=== PATIENT | female | born 1995 ===

== ENCOUNTER → 2019-05-19 | Outpatient (CLI) | payer BC, OTHER ==
[~2019-05-19] MED LIST: HYDR1TAB94 PO; IBUP400 PO; KETO10 PO; OXYACE5T PO
== END | disposition home or self-care (01) ==
LOC: LAB 19:21 → LAB SHORT 19:21
PROVIDERS: Nurse Practitioner
DX: Z01.419 Encounter for gynecological examination (general) (routine) without abnormal findings (principal)
CPT/HCPCS: G0145

== ENCOUNTER → 2019-10-15 | Outpatient (CLI) | payer BC | END | disposition home or self-care (01) | LOC: LAB SHORT 13:05 → PLD 13:05 | DX: D22.5 Melanocytic nevi of trunk (principal) | CPT/HCPCS: 88305 ==

== ENCOUNTER → 2021-11-24 | Outpatient (CLI) | payer BC ==
[2021-11-24 17:54] LABS: BASOPHILS ABSOLUTE AUTO 0.02 K/mm3 (0.00-0.23); BASOPHILS PERCENT AUTO 0 % (0-2); EOSINOPHILS ABSOLUTE AUTO 0.09 K/mm3 (0.00-0.68); EOSINOPHILS PERCENT AUTO 1 % (0-6); Hematocrit 39.8 % (33.0-51.0); IMMATURE GRAN ABSOLUTE AUTO 0.02 K/mm3 (0.00-0.10); IMMATURE GRAN PERCENT AUTO 0 % (0-1); LYMPHOCYTES ABSOLUTE AUTO 1.54 K/mm3 (0.84-5.20); LYMPHOCYTES PERCENT AUTO 17 % (21-46); MONOCYTES PERCENT AUTO 5 % (4-13); Mean Corpuscular HGB 30.8 pg (26.0-34.0); Mean Corpuscular HGB Conc 32.7 g/dL (31.5-36.5); Mean Corpuscular Volume 94 fL (80-100); Mean Platelet Volume 11.5 fL (9.1-12.4); NEUTROPHILS PERCENT AUTO 77 % (41-73); Platelet Count 254 K/mm3 (150-400); RDW Coefficient Variation 11.9 % (11.7-14.2); Red Blood Cell Count 4.22 M/mm3 (3.80-5.20); White Blood Cell Count 9.27 K/mm3 (4.00-11.30)
[2021-11-24 18:19] LABS: Thyroid Stimulating Hormone 0.812 uIU/mL (0.360-4.800)
== END | disposition home or self-care (01) ==
LOC: LAB SHORT 14:52
PROVIDERS: Advanced Practice Midwife
DX: O09.91 Supervision of high risk pregnancy, unspecified, first trimester (principal); O99.281 Endocrine, nutritional and metabolic diseases complicating pregnancy, first trimester; E03.9 Hypothyroidism, unspecified
CPT/HCPCS: 82950; 84443; 85025

== ENCOUNTER 2022-02-11 05:09 | Inpatient (IN) | payer BC ==
[~2022-02-11] VITALS: Ht 160 cm; Wt 79.5 kg
[2022-02-11] MEDS ORDERED: LEVSOD75 (05:23)
[2022-02-11] MEDS ORDERED: PRENATAL TABLE1 EAC2 (05:23)
[2022-02-11 06:11] LABS: BASOPHILS ABSOLUTE AUTO 0.02 K/mm3 (0.00-0.23); BASOPHILS PERCENT AUTO 0 % (0-2); EOSINOPHILS ABSOLUTE AUTO 0.05 K/mm3 (0.00-0.68); EOSINOPHILS PERCENT AUTO 1 % (0-6); Hematocrit 42.3 % (33.0-51.0); Hemoglobin 14.6 g/dL (11.5-16.0); IMMATURE GRAN ABSOLUTE AUTO 0.02 K/mm3 (0.00-0.10); IMMATURE GRAN PERCENT AUTO 0 % (0-1); LYMPHOCYTES ABSOLUTE AUTO 2.03 K/mm3 (0.84-5.20); LYMPHOCYTES PERCENT AUTO 20 % (21-46); MONOCYTES ABSOLUTE AUTO 0.54 K/mm3 (0.16-1.47); MONOCYTES PERCENT AUTO 5 % (4-13); Mean Corpuscular HGB Conc 34.5 g/dL (31.5-36.5); Mean Corpuscular Volume 87 fL (80-100); Mean Platelet Volume 11.5 fL (9.1-12.4); NEUTROPHILS ABSOLUTE AUTO 7.43 K/mm3 (1.96-9.15); NEUTROPHILS PERCENT AUTO 74 % (41-73); Platelet Count 251 K/mm3 (150-400); RDW Coefficient Variation 11.9 % (11.7-14.2); RDW Standard Deviation 38.5 fL (35.1-46.3); Red Blood Cell Count 4.86 M/mm3 (3.80-5.20); White Blood Cell Count 10.09 K/mm3 (4.00-11.30)
== END 2022-02-12 10:55 | disposition home or self-care (01) | DRG 768 ==
LOC: OBS 05:09 → BC 05:10 → OBS 05:26 → BC 05:27
PROVIDERS: ADMIT Family Medicine
PROC: 10E0XZZ Delivery of Products of Conception, External Approach (ICD-10-PCS; principal; 2022-02-11)
PROC: 0DQP0ZZ Repair Rectum, Open Approach (ICD-10-PCS; 2022-02-11)
DX: O99.284 Endocrine, nutritional and metabolic diseases complicating childbirth (principal); Z37.0 Single live birth; O48.0 Post-term pregnancy; O99.42 Diseases of the circulatory system complicating childbirth; O70.3 Fourth degree perineal laceration during delivery; E03.9 Hypothyroidism, unspecified; Z3A.40 40 weeks gestation of pregnancy; O76 Abnormality in fetal heart rate and rhythm complicating labor and delivery; I05.8 Other rheumatic mitral valve diseases
CPT/HCPCS: 36415; 85025; 86850; 86900; 86901; A9270; J1885; J2405; J2590; J3010; J7120

== ENCOUNTER → 2022-05-15 | Outpatient (CLI) | payer BC ==
[~2022-05-15] MED LIST changes: +LEVSOD75; +PRENATAL TABLE1 EAC2
[2022-05-15 13:57] LABS: Source, Urine Clean Catch
[2022-05-15 15:25] LABS: Appearance, Urine Hazy (Clear); Bilirubin, Urine Neg (Neg); Blood, Urine 2+ (Neg); Color, Urine Yellow (P-Yellow); Glucose Qualitative, Urine Neg (Neg); Ketones, Urine Neg (Neg); Leukocyte Esterase, Urine 3+ (Neg); Nitrite, Urine Neg (Neg); Protein, Urine 2+ (Neg); Urobilinogen, Urine NORM (Normal)
[2022-05-15 15:55] LABS: Bacteria Many /hpf; Red Blood Cells, Urine 0-2 /hpf (0-2); Squamous Epithelial Cells Few /hpf (Few); Transitional Epithelial Cells Few /hpf (0-Rare); White Blood Cells, Urine 50-100 /hpf (0-5)
[2022-05-16 10:59] LABS: Candida species (DNA Probe) Negative (NEGATIVE); G. vaginalis (DNA Probe) Negative (NEGATIVE); T. vaginalis (DNA Probe) Negative (NEGATIVE)
== END | disposition home or self-care (01) ==
LOC: LAB SHORT 13:54 → LAB 13:54
PROVIDERS: Advanced Practice Midwife
DX: N76.0 Acute vaginitis (principal); R30.0 Dysuria
CPT/HCPCS: 81001; 87086; 87480; 87510; 87660

== ENCOUNTER → 2022-08-08 | Outpatient (CLI) | payer BC | LOC: LAB SHORT 13:50 → LAB 13:50 | DX: N89.8 Other specified noninflammatory disorders of vagina (principal) | CPT/HCPCS: 88305; 88312 ==

== ENCOUNTER 2022-08-20 09:32 | Emergency (ER) | payer OTHER, BC ==
[~2022-08-20] VITALS: Ht 160 cm; Wt 68.0 kg
[2022-08-20] MEDS ORDERED: PRENATAL TABLE1 EAC2 PO (09:45)
[2022-08-20] MEDS ORDERED: EUTHYROX50 MCG PO (09:45)
[2022-08-21 13:09] LABS: HIV AB/P24 AG SCREEN Non Reactive (Non Reactive)
[2022-08-22 00:10] LABS: HCV ANTIBODY Non Reactive (Non Reactive)
== END 2022-08-20 10:02 | disposition home or self-care (01) ==
LOC: ER 09:32
PROVIDERS: Physician Assistant
DX: S61.032A Puncture wound without foreign body of left thumb without damage to nail, initial encounter (principal); W46.0XXA Contact with hypodermic needle, initial encounter; Z79.899 Other long term (current) drug therapy
CPT/HCPCS: 36415; 84460; 86317; 86703; 86803; 87340; 87389; 99282

== ENCOUNTER → 2022-10-03 | Outpatient (CLI) | payer OTHER, BC ==
[~2022-10-03] MED LIST changes: +EUTHYROX50 MCG PO; +PRENATAL TABLE1 EAC2 PO
[2022-10-04 16:11] LABS: HIV AB/P24 AG SCREEN Non Reactive (Non Reactive)
== END | disposition home or self-care (01) ==
LOC: LAB SHORT 15:39
PROVIDERS: Family Medicine
DX: Z20.9 Contact with and (suspected) exposure to unspecified communicable disease (principal)
CPT/HCPCS: 86803; 87389

== ENCOUNTER → 2023-05-16 | Outpatient (CLI) | payer BC ==
[2023-05-17 08:03] LABS: Candida species (DNA Probe) Positive (NEGATIVE); G. vaginalis (DNA Probe) Positive (NEGATIVE); T. vaginalis (DNA Probe) Negative (NEGATIVE)
== END | disposition home or self-care (01) ==
LOC: LAB 14:51 → LAB SHORT 14:51
PROVIDERS: Advanced Practice Midwife
DX: N76.0 Acute vaginitis (principal)
CPT/HCPCS: 87480; 87510; 87660